=== PATIENT | male | born 1935 | race Caucasian/White ===

== ENCOUNTER → 2016-08-12 07:31 | Outpatient (CLI) | payer MEDICARE, BC ==
[2015-02-11 13:45] VITALS: BMI 27.3
[~2016-08-12 07:31] MED LIST: ATROVENT 0.02%2.5 ML UPD; BAYER CHEWABLE81 MG PO; BETAPACE 80 MG80 MG PO; BYSTOLIC2.5 MG PO; CHLORTHALIDONE25 MG PO; COLCRYS0.6 MG PO; COZAAR50 MG PO; FISH OIL 500 MG1 CAP PO; FLOMAX0.4 MG PO; FLUTICASONE PRO16 GM NASAL; HYDROCODONE-APA1 TAB PO; K-DUR20 MEQ PO; LASIX40 MG PO; MUCINEX DM ER1 EAC1 PO; NITROSTAT0.4 MG SL; NORVASC5 MG PO; NYSTATIN ORAL SU5 ML PO; OS-CAL 500+D TA1 TAB PO; PERCOCET 10/3251 TA1 PO; PLAVIX75 MG PO; PREDNISONE20 MG PO; RESTORIL15 MG PO; ROCEPHIN 2 GM/D52 G1 IV; TESSALON PERLE100 MG PO; ULTRAM50 MG PO; ZOFRAN4 MG PO
== END | disposition home or self-care (01) ==
LOC: D.RT 07:31
DX: J45.909 Unspecified asthma, uncomplicated (principal)

== ENCOUNTER 2017-03-09 08:57 | Outpatient (CLI) | payer MEDICARE, BC ==
--- NOTE | ~2017-03-09 | HEMODYNAMI ---
PATIENT:FARAZ POSADA MEDICAL RECORD: [id number] : 37 LOCATION:D.CAT ADMISSION DATE: 03/09/17 Generatedon:03/09/201711:24 Patient name: FARAZ POSADA Patient #: [id number] SSN: : 1935 Date of study: 03/09/2017 Page: Of Hemodynamic Procedure Report Patient Data Patient Demographics Procedure consent was obtained First Name: FARAZ Gender: Male Last Name: SWETHA : 1935 [facility] Initial: ISAAC Age: 81 year(s) Patient #: [id number] Race: Additional ID: [id number] Contact details [address]: [address] [place] [address] State: [place] City: [place] Zip code: [address] Past Medical History Allergies Allergen Reaction Date Comments Reported Demerol 09/30/2014 Other allergy 09/30/2014 demerol, dexamethasone, sulfa, prednisone, ibuprofen, cortisone, IV contrast dye Other allergy 03/09/2017 Demerol, Ibuprofen, Iodine, Sulfa, Prednisone, Statins Admission Admission Data Admission Date: 03/09/2017 Admission Time: 8:57 Lab Results Lab Result Date: 03/09/2017 Lab Result Time: 0:00 Biochemistry Name Units Result Min Max BUN mg/dl 20 --(----)*- 7 18 Creatinine mg/dl 1.4 --(----)*- 0.6 1.3 CBC Name Units Result Min Max Hemoglobin g/dl 15.5 --(-*--)-- 13.5 17.5 Procedure Procedure Types Cath Procedure Diagnostic Procedure [facility] w/Coronaries FFR/IVUS Intra-Coronary IVUS Initial PCI Procedure Coronary Stent Initial Miscellaneous Procedures Moderate Sedation up to 30 minutes Peripheral Cath Diagnostic Procedure Cath Peripheral Lmoey-Wpqywao-Lls-Off Procedure Description Procedure Date Procedure Date: 03/09/2017 Procedure Start Time: 10:50 Procedure End Time: 11:17 Procedure Staff Name Function Javier Hsu MD Performing Physician Latia Smith RT Scrub Prince Maloney RN Nurse Sonya Kirkland RT Monitor Procedure Data Cath Procedure Fluoroscopy Diagnostic fluoroscopy Total fluoroscopy Time: 8.1 time: 8.1 min min Diagnostic fluoroscopy Total fluoroscopy dose: dose: 1500 mGy 1500 mGy Contrast Material Contrast Material Type Amount (ml) Isovue 300 153 Entry Location Entry Primary Successful Side Size Upsize Upsize Entry Closure Succes sful Closure Location (Fr) 1 (Fr) 2 (Fr) Remarks Device Remarks Femoral Left 5 Fr 6 Fr 7 Fr Exoseal artery Short Short Estimated blood loss: 5 ml Diagnostic catheters Device Type Used For End Catheter Placement Cordis 5Fr Pigtail Multi-vessel Catheter (MP) Angiography Cordis 5Fr JL 4.0 Left Coronary Catheter (MP) Angiography Cordis 5Fr 3DRC Catheter Right Coronary (MP) Angiography Procedure Complications No complications Procedure Medications Medication Administration Route Dosage Oxygen NC 2 l/min Heparin Flush Bag added to field 2 bags (1000units/500ml NS) 0.9% NaCl I.V. 100 ml/hr Fentanyl I.V. 50 mcg Versed I.V. 1 mg Fentanyl I.V. 50 mcg Versed I.V. 1 mg Fentanyl I.V. 50 mcg Versed I.V. 1 mg Fentanyl I.V. 50 mcg Versed I.V. 1 mg Heparin Bolus I.V. 4000 units Integrilin (Bolus 8.5 ml 2mg/ml) Integrilin (Bolus wasted 1.5 ml 2mg/ml) Plavix P.O. 600 mg Hemodynamics Rest HGB: 15.5 (g/dl) Heart Rate: 78 (bpm) Pressure Samples Time Site Value (mmHg) Purpose Heart Use Rate(bpm) 10:52 LV 67/9,10 Snapshot 75 Snapshots Pre Cath Intra NCS Post Cath Vital Signs Time Heart Resp SPO2 NIBP (mmHg) Rhythm Pain Sedation Rate (ipm) (%) Status Level (bpm) 10:25:32 78 17 100 155/87(128) NSR 0 (11) 10(A) , No pain 10:29:52 76 18 88 151/82(123) NSR 0 (11) 10(A) , No pain 10:34:10 73 18 98 148/79(115) NSR 0 (11) 10(A) , No pain 10:38:27 73 17 97 139/78(110) NSR 0 (11) 10(A) , No pain 10:42:38 73 19 98 133/82(106) NSR 0 (11) 10(A) , No pain 10:46:51 73 17 98 132/75(107) NSR 0 (11) 10(A) , No pain 10:51:00 78 18 98 136/81(103) NSR 0 (11) 9(A) , No pain 10:55:16 74 18 94 131/72(104) NSR 0 (11) 9(A) , No pain 10:59:28 80 17 88 124/75(105) NSR 0 (11) 9(A) , No pain 11:03:36 80 18 92 121/75(96) NSR 0 (11) 9(A) , No pain 11:07:44 80 18 92 126/74(103) NSR 0 (11) 9(A) , No pain 11:11:52 80 18 92 135/82(115) NSR 0 (11) 9(A) , No pain 11:16:04 77 17 97 139/80(106) NSR 0 (11) 10(A) , No pain Medications Time Medication Route Dose Verified Delivered Reason Notes Effectiveness by by 10:24:49 Oxygen NC 2 Javier Prince Per physician l/min Shadi Maloney RN 10:24:56 Heparin Flush added 2 Javier Prince used for Bag to bags Shadi Maloney salesperson shoes (1000units/500ml field NS) 10:25:06 0.9% NaCl I.V. 100 Javier Liy Per physician ml/hr Shadi Maloney RN 10:44:11 Fentanyl I.V. 50 Javier Prince for sedation mcg Shadi Maloney RN 10:44:18 Versed I.V. 1 mg Javier Prince for sedation Shdai Maloney RN 10:46:58 Fentanyl I.V. 50 Javier Prince for sedation mcg Shadi Maloney RN 10:47:03 Versed I.V. 1 mg Javier Prince for sedation Shadi Maloney RN 10:49:55 Fentanyl I.V. 50 Javier Prince for sedation mcg Shadi Maloney RN 10:49:59 Versed I.V. 1 mg Javier Prince for sedation Shadi Maloney RN 10:53:48 Fentanyl I.V. 50 Javier Morrison for sedation mcg Shadi Maloney RN 10:53:51 Versed I.V. 1 mg Javier Morrison for sedation Shadi Maloney RN 10:59:43 Heparin Bolus I.V. 4000 Javier Morrison for units Shadi Maloney RN anticoagulation 11:09:07 Integrilin 8.5 Javier Morrison for (Bolus 2mg/ml) ml Shadi Maloney RN antiplatelet therapy 11:09:15 Integrilin wasted 1.5 Javier Morrison for (Bolus 2mg/ml) ml Shadi Maloney RN antiplatelet therapy 11:15:37 Plavix P.O. 600 Javier Morrison for mg Shadi Maloney RN antiplatelet therapy Procedure Log Time Note 10:05:30 Prince Maloney RN sent for patient. Start room use. 10:15:09 Diagnostic Cath Status : Elective 10:15:36 Time tracking: Regular hours 10:15:56 Plan of Care:Hemodynamics will remain stable., Cardiac rhythm will remain stable., Comfort level will be maintained., Respiratory function will remain adequate., Patient/ family verbilizes understanding of procedure., Procedure tolerated without complication., Recovers from procedure without complications.. 10:16:05 Patient received from Pre/Post Procedure Room to CCL 2 Alert and oriented. Tansferred to table in Supine position. 10:16:06 Warm blankets applied, and dorothy hugger turned on for patient comfort. 10:16:07 Correct patient and procedure confirmed by team. 10:16:08 Signed procedure consent form obtained from patient. 10:16:09 ECG and BP/O2 sat monitors applied to patient. 10:24:26 Vital chart was started 10:24:49 Oxygen 2 l/min NC was administered by Prince Maloney RN; Per physician; 10:24:56 Heparin Flush Bag (1000units/500ml NS) 2 bags added to field was administered by Prince Maloney RN; used for procedure; 10:25:06 0.9% NaCl 100 ml/hr I.V. was administered by Prince Maloney RN; Per physician; 10:27:14 Baseline sample Acquired. 10:27:21 Full Disclosure recording started 10:27:25 H&P Date Dictated: 03/09/2017 Within 30 days and on chart., H&P Addendum completed by physician on day of procedure. (MUST COMPLETE FOR ALL OUTPATIENTS). 10:27:27 Pre-procedure instructions explained to patient. 10:27:27 Pre-op teaching completed and patient verbalized understanding. 10:27:28 Family in waiting room. 10:27:29 Patient NPO since Midnight. 10:28:13 Patient allergic to Other allergyDemerol, Ibuprofen, Iodine, Sulfa, Prednisone, Statins 10:28:29 Is the patient allergic to Iodine/contrast media? Yes. 10:28:30 Was the patient premedicated? Yes 10:28:35 Is patient on blood thinner?Yes 10:28:39 ACC The patient was administered the following blood thiners within the last 24 hours: ACCAspirin 10:28:41 Patient diabetic? No. 10:28:43 Previous problem with sedation/anesthesia? No ? 10:28:45 Snore? Yes 10:28:46 Sleep apnea? Yes 10:28:47 Deviated septum? No 10:28:48 Opens mouth fully? Yes 10:28:50 Sticks out tongue? Yes 10:28:55 Airway obstruction? Yes copd 10:29:01 Dentures? Yes in tight 10:31:31 Pre procedure: right dorsailis pedis pulse 2+ Normal; easily identifiable; not easily obliterated 10:31:33 Pre procedure: left dorsailis pedis pulse 2+ Normal; easily identifiable; not easily obliterated 10:31:41 Patient pain scale 0/10 ?. 10:31:46 IV patent on arrival in left forearm with 0.9% NaCl at [facility]. 10:33:53 Lab Result : BUN 20 mg/dl 10:33:53 Lab Result : Creatinine 1.4 mg/dl 10:33:53 Lab Result : Hemoglobin 15.5 g/dl 10:33:59 Lab results completed and on chart. 10:34:06 Bilateral groins area was prepped with chlora-prep and draped in sterile fashion 10:34:07 Alarms reviewed by R. N. 10:34:08 Sharps counted by scrub and verified by R.N. 10:34:59 Zero performed for pressure channel P1 10:37:24 Physician paged 10:43:32 --------ALL STOP TIME OUT------ 10:43:32 Final Timeout: patient, procedure, and site verified with staff and physician. All members of the team are in agreement. 10:43:41 Right groin site verified by team. 10:43:46 Physical assessment completed. ASA score P 2 - A patient with mild systemic disease as per Javier Hsu MD. 10:43:50 Sedation plan: IV Moderate Sedation Versed, Fentanyl 10:44:11 Fentanyl 50 mcg I.V. was administered by Prince Malnoey RN; for sedation; 10:44:18 Versed 1 mg I.V. was administered by Prince Maloney RN; for sedation; 10:44:27 Use device set Femoral Dx 10:44:28 Acist Syringe opened to sterile field. 10:44:28 Bag Decanter opened to sterile field. 10:44:28 Medline Cath Pack opened to sterile field. 10:44:29 Terumo 5Fr [place] Sheath opened to sterile field. 10:44:29 St Shukri 260cm J .035 wire opened to sterile field. 10:44:30 Acist Hand Control opened to sterile field. 10:44:31 Acist Manifold opened to sterile field. 10:44:31 Diagnostic Infinity 5Fr Multipack catheter opened to sterile field. 10:44:31 Tegaderm 4 x 4 opened to sterile field. 10:46:58 Fentanyl 50 mcg I.V. was administered by Prince Maloney RN; for sedation; 10:47:03 Versed 1 mg I.V. was administered by Prince Maloney RN; for sedation; 10:48:12 Procedure started. 10:49:55 Fentanyl 50 mcg I.V. was administered by Prince Maloney RN; for sedation; 10:49:59 Versed 1 mg I.V. was administered by Prince Maloney RN; for sedation; 10:50:21 Local anesthetic to left femerol artery with Lidocaine 2% by Javier Hsu MD.INITIAL ACCESS ONLY 10:50:54 PERCUTANEOUS ENTRY 19GA needle opened to sterile field. 10:51:06 A 5 Fr sheath was inserted into the Left Femoral artery 10:51:15 A Cordis 5Fr Pigtail Catheter (MP) was advanced over the wire and used for Multi-vessel Angiography. 10:52:29 LV hemodynamics recorded. 10:52:30 LV gram done using BELTRAN 10:52:32 Injector settings: Ml/sec: 5, Volume: 15, 10:52:40 EF : 50 % 10:53:05 Abdominal angiogram w/ runoff was performed. 10:53:12 Injector settings: Ml/sec: 10, Volume: 20, 10:53:42 Catheter removed. 10:53:47 A Cordis 5Fr JL 4.0 Catheter (MP) was advanced over the wire and used for Left Coronary Angiography. 10:53:48 Fentanyl 50 mcg I.V. was administered by Prince Maloney RN; for sedation; 10:53:51 Versed 1 mg I.V. was administered by Prince Maloney RN; for sedation; 10:55:18 LCA angiography performed. 10:55:21 Injector settings: Ml/sec: 3, Volume: 6, 10:56:48 Catheter removed. 10:56:55 A Cordis 5Fr 3DRC Catheter (MP) was advanced over the wire and used for Right Coronary Angiography. 10:57:19 RCA angiography performed. 10:57:22 Injector settings: Ml/sec: 3, Volume: 6, 10:58:07 Catheter removed. 10:58:08 Proceeding to intervention. 10:58:25 [facility] [place] IVUS Catheter opened to sterile field. 10:58:26 Kennedy Whisper J 300cm 0.014 guide wire opened to sterile field. 10:58:27 Pediatric Bioscience BasixCompak Inflation Kit opened to sterile field. 10:58:27 Terumo 6Fr [place] Sheath opened to sterile field. 10:58:41 Medtronic Launcher 6Fr AR 2.0 guide catheter opened to sterile field. 10:58:58 Sheath upsized to a 6 Fr Short. 10:59:05 6 Fr ar 2 guide catheter was inserted over the wire 10:59:43 Heparin Bolus 4000 units I.V. was administered by Prince Maloney RN; for anticoagulation; 11:01:11 Storify PT Graphix J 300cm 0.014 guide wire opened to sterile field. 11:01:26 pt graphix wire advanced. 11:02:20 IVUS catheter advanced over wire. 11:03:56 IVUS pass to RCA lesion performed. 11:03:57 IVUS catheter removed over wire. 11:04:02 Wire removed. 11:04:05 Guide catheter removed. 11:04:31 Medtronic Launcher 7Fr AR 2.0 guide catheter opened to sterile field. 11:04:34 Terumo 7Fr [place] Sheath opened to sterile field. 11:04:45 Sheath upsized to a 7 Fr Short. 11:04:53 7 Fr ar 2 guide catheter was inserted over the wire 11:05:00 pt graphix wire advanced. 11:07:20 Inflation number: 1 A Euphora 3.5 x 30 Balloon was prepped and advanced across the Mid RCA, then inflated to 15 SHAGGY for 0:10 (min:sec). 11:08:10 Balloon removed over the wire. 11:09:07 Integrilin (Bolus 2mg/ml) 8.5 ml was administered by Prince Maloney RN; for antiplatelet therapy; 11:09:15 Integrilin (Bolus 2mg/ml) 1.5 ml wasted was administered by Prince Maloney RN; for antiplatelet therapy; 11:09:43 Inflation Number: 2 A Que OTW 3.5 x 34 stent was prepped and advanced across the Mid RCA. The stent was deployed at 19 SHAGGY for 0:10 (min:sec). 11:10:34 Stent catheter was removed intact over wire. 11:12:44 Inflation Number: 1 A Schoolcraft OTW 4.0 x 12 stent was prepped and advanced across the Prox RCA. The stent was deployed at 13 SHAGGY for 0:10 (min:sec). 11:14:01 Stent catheter was removed intact over wire. 11:14:01 Wire removed. 11:14:02 Guide catheter removed. 11:14:12 Cordis 7Fr Exoseal opened to sterile field. 11:14:20 Sheath removed intact; hemostasis achieved with Exoseal to the Left Femoral artery. 11:14:21 Procedure ended.(Physican Out) 11:15:07 Fluoroscopy time 08.10 minutes. 11:15:12 Fluoroscopy dose: 1500 mGy 11:15:12 Flurop Dose total: 1500 11:15:37 Plavix 600 mg P.O. was administered by Prince Maloney RN; for antiplatelet therapy; 11:15:53 Contrast amount:Isovue 300 153ml. 11:15:55 Sharps counted by scrub and verified by R.N. 11:15:57 Insertion/operative site no bleeding no hematoma. 11:16:00 Post-op/insertion site Left Femoral artery dressed using a 4 x 4 and Tegaderm. 11:16:04 Post left femerol artery:stable 11:16:07 Post Procedure Pulses reassessed and unchanged 11:16:10 Post procedure rhythm: unchanged. 11:16:12 Estimated blood loss: 5 ml 11:16:13 Post procedure instruction explained to patient.Patient verbalizes understanding. 11:16:14 Patient needs reinforcement of post procedure teaching. 11:16:40 Procedure type changed to Cath procedure, Diagnostic procedure, LHC, LHC w/Coronaries, FFR/IVUS, Intra-Coronary IVUS Initial, PCI procedure, Coronary Stent Initial, Miscellaneous Procedures, Moderate Sedation up to 30 minutes, Peripheral Cath Diagnostic Procedure, Cath Peripheral, Bttld-Qhvxkwo-Vsk-Off 11:16:49 Procedure and supply charges have been captured, reviewed, submitted and are correct. 11:16:52 Procedure Complication : No complications 11:16:54 Vital chart was stopped 11:16:55 See physician's report for complete and final results. 11:16:58 Report given to Pre/Post Procedure Room. 11:17:00 Patient transfered to Pre/Post Procedure Room with Stretcher. 11:17:02 Procedure ended. 11:17:02 Full Disclosure recording stopped 11:17:08 ACC-PCI Only Patient was given prescriptions, or instructed by Javier Hsu MD to start/continue the following medications upon discharge: Plavix 11:17:09 End room use (Document Last) 11:23:11 Femstop placed over the left femerol artery at 160 mmHg. Hemostasis achieved. Intervention Summary Intervention Notes Time ActionType Lesion and Equipment Action# Pressure Duration Attributes Used 11:07:20 Inflate Mid RCA Euphora 1 15 00:10 balloon 3.5 x 30 Balloon 11:09:43 Place stent Mid RCA Que OTW 2 19 00:10 3.5 x 34 stent 11:12:44 Place stent Prox RCA Que OTW 1 13 00:10 4.0 x 12 stent Device Usage Item Name Manufacture Quantity Catalog Number Hospital Part Current Min imal Lot# / Charge Number Stock Stock Serial# Code Acist Acist 1 [id number] 956634 308449 20 [employer] Oriented Development Software Bag Decanter Microtek [address] [place], [place] [address] 13847 847474 5 Medical Inc. Medline Cath Cardinal 1 [id number] 929289 50782 247010 5 Pack Health Terumo 5Fr Terumo 1 [id number] 926038 630215 666393 [address] [place] [address] Shukri 1 [id number] 788478 152926 977742 30 260cm J .035 wire Acist Hand Acist 1 34078 672822 847276 219258 5 Control Medical Systems Inc Acist Acist 1 78192 871600 233035 142796 5 [facility] Medical Systems Inc Diagnostic Cardinal 1 [id number] 403240 30957 019048 30 Infinity 5Fr Health Multipack catheter Tegaderm 4 x 3M 1 [id number] 035434 423909 847560 5 4 PERCUTANEOUS [facility] 1 [id number] 750687 394813 5 [id number] ENTRY 19GA needle Cordis 5Fr Cardinal 1 803740 5 Pigtail Health Catheter (MP) Cordis 5Fr Cardinal 1 [id number] 5 JL 4.0 Health Catheter (MP) Cordis 5Fr Cardinal 1 172617 5 3DRC Health Catheter (MP) [facility] [place] [facility] [place] 1 [id number] 067359 154407 940332 8 [place] IVUS Catheter [place] 1 [id number] 089478 495152 168465 5 Whisper J Vascular 300cm 0.014 guide wire Merit Merit 1 [id number] 366764 805408 033577 15 [facility] Inflation [facility] Terumo 6Fr Terumo 1 [id number] 204658 844851 474416 40 [place] Sheath Medtronic Medtronic 1 [id number] 608980 78923 703185 1 Launcher 6Fr AR 2.0 guide catheter [place] [employer] [place] 1 [id number] 352125 126357 517944 5 PT Graphix J Scientific 300cm 0.014 guide wire Medtronic Medtronic 1 [id number] 352568 178185 989507 0 Launcher 7Fr AR 2.0 guide catheter Terumo 7Fr Terumo 1 [id number] 860465 835292 428922 5 [place] Sheath Euphora 3.5 Medtronic 1 [id number] 743195 368942 721562 5 [id number] x 30 Balloon Que OTW 3.5 Medtronic 1 [id number] 005115 8092872 040635 5 [id number] x 34 stent Schoolcraft OTW 4.0 Medtronic 1 [id number] 825180 0212513 712678 5 [id number] x 12 stent Cordis 7Fr Cardinal 1 [id number] 698548 034828 202506 5 [facility] Health Signature Audit [place] Stage Time Signature Unsigned Intra-Procedure 03/09/2017 Sonya Kirkland 11:24:15 AM RT(R) Signatures Monitor : Sonya Kirkland RT Signature : Date : Time : [place] [id number] [facility] [place] [address]
[2017-03-09] MEDS ORDERED: NORVASC5 MG PO (09:19)
[2017-03-09] MEDS ORDERED: METOPROLOL TART50 MG PO (09:20)
[2017-03-09] MEDS ORDERED: PROSCAR5 MG PO (09:21)
[2017-03-09] MEDS ORDERED: LASIX20 MG PO (09:21)
[2017-03-09 09:29] VITALS: BP 144/87; BMI 25.6
[2017-03-09 09:46] LABS: BASOPHILS 0.2 % (0-2); EOSINOPHILS 0 % (0-7); HEMATOCRIT 44.9 % (42.0-54.0); HEMOGLOBIN 15.5 g/dL (13.5-17.5); IMMATURE GRANULOCYTES 0.7 % (0-5); MCHC 34.5 g/dL (31.0-37.0); MEAN PLATELET VOLUME 10.4 fL (7.4-10.4); MONOCYTES 2.9 % (2-11); NEUTROPHILS 88.2 % (40-80); PLATELET COUNT 277 10x3/uL (130-400); RBC 5.16 10x6/uL (4.20-6.10); RDW 13.8 % (11.5-14.5); WBC 10.4 10x3/uL (4.8-10.8)
[2017-03-09 09:53] LABS: CALCIUM 9.7 mg/dL (8.5-10.1); CARBON DIOXIDE 24.9 mmol/L (21.0-32.0); CREATININE - SERUM 1.4 mg/dL (0.6-1.3); POTASSIUM - SERUM 3.9 mmol/L (3.5-5.1)
[2017-03-09] MEDS ORDERED: PLAVIX75 MG PO (11:50)
--- NOTE | 2017-03-09 11:50 | NUR ---
2L NC, NO RESP DISTRESS NOTED. LEFT GROIN 6F EXOSEAL CDI, NO BLEEDING NOTED. FEMSTOP IN PLACE. NO C/O PAIN OR NAUSEA AT THIS TIME. VSS. FAMILY AT BEDSIDE, CALL LIGHT WITHIN REACH.
--- NOTE | 2017-03-09 12:31 | NUR ---
FEMSTOP REMAINS IN PLACE WITH VSS NO DISTRESS NOTED. L/GROIN CDI WILL MONITOR
--- NOTE | 2017-03-09 12:45 | NUR ---
FEMSTOP PRESSURE DECREASED BY 40, NO BLEEDING NOTED.
--- NOTE | 2017-03-09 13:00 | NUR ---
FEMSTOP PRESSURE DECREASED BY 40, NO BLEEDING NOTED.
--- NOTE | 2017-03-09 13:25 | NUR ---
REMAINING FEMSTOP PRESSURE REMOVED ALONG WITH FEMSTOP. DRESSING PLACED TO SITE. NO BLEEDIG NOTED.
--- NOTE | 2017-03-09 14:38 | NUR ---
HOB ELEVATED 30 DEGREES. LEFT GROIN 6F EXOSEAL CDI, NO BLEEDING OR HEMATOMA NOTED.
--- NOTE | 2017-03-09 15:10 | NUR ---
TO RESTROOM TO VOID.
--- NOTE | 2017-03-09 15:15 | NUR ---
DISCHARGE INSTRUCTIONS GIVEN, VERBALIZED UNDERSTANDING. TAKEN OUT VIA WHEELCHAIR BY CATH LIBERAL ARTS DEAN. LEFT FACILITY WITH FAMILY MEMBER AND ALL PERSONAL BELONGINGS.
--- NOTE | 2017-03-25 16:56 | OP ---
PATIENT NAME: FARAZ POSADA MEDICAL RECORD: [id number] :37 LOCATION:D.CAT ADMISSION DATE: SURGEON: LEYDA BENJAMIN MD DATE OF OPERATION: 03/09/2017 PROCEDURES: 1. PTCA stent to RCA. 2. Intravascular ultrasound. 3. Left heart catheterization. 4. Selective coronary angiography. 5. Left ventriculogram. INDICATION: Angina and coronary artery disease. PROCEDURE IN DETAIL: After informed consent was obtained and after a detailed explanation of the risks, benefits as well as alternative therapies, the patient elected to proceed with angiogram and angioplasty. The left femoral area was prepped and draped in normal sterile fashion. Left femoral artery was cannulated via modified Seldinger technique with placement of a 7-Maltese sheath. All catheters exchanged through this sheath. FINDINGS: The left ventriculogram was performed in standard 30-degree BELTRAN view, reveals preserved ejection fraction at 50%. SELECTIVE CORONARY ANGIOGRAPHY: 1. Left main showed no significant angiographic disease. 2. Left anterior descending has mild irregularities, but no flow-limiting stenosis. Previously placed stents are widely patent with no significant restenosis. 3. Left circumflex has 80+ percent stenosis of the first obtuse marginal. 4. Right coronary artery has greater than 75% stenosis throughout the proximal and mid vessel confirmed by intravascular ultrasound. PDA is totally occluded. The PDA fills via left to right collaterals. The right coronary does fill a large PLV system. PTCA STENT OF THE RIGHT CORONARY: The stent used was a 3.5 x 34 and 4.0 x 12 both Que stents. Result was 0% residual stenosis. OVERALL IMPRESSION: Successful percutaneous transluminal coronary angioplasty stent of the right coronary artery going from a long area of 75+ percent stenosis to 0% residual stenosis. PLAN: PTCA stent of the left circumflex in the near future. TRANSINT:[id number] Voice Confirmation ID: [id number] DOCUMENT ID: [id number] LEYDA BENJAMIN MD at 1656 CC: [id number] DICTATION DATE: 03/09/17 1118 GATE SUPERVISOR: 03/09/17 1137 [facility] CLI 03/09/17 [place] [address]
--- NOTE | 2017-03-25 16:56 | OP ---
PATIENT NAME: FARAZ POSADA MEDICAL RECORD: [id number] :37 LOCATION:D.CAT ADMISSION DATE: SURGEON: LEYDA BENJAMIN MD DATE OF OPERATION: 03/09/2017 PROCEDURES: 1. Aortofemoral runoff. 2. Abdominal aortography. INDICATION: Claudication and peripheral vascular disease. PROCEDURE IN DETAIL: After informed consent was obtained and after a detailed explanation of the risks, benefits as well as alternative therapies, the patient elected to proceed with angiogram and aortofemoral runoff. The left femoral area had a preexisting sheath from cardiac intervention. FINDINGS: Abdominal aortography was performed. The catheter was pulled down for aortofemoral runoff. Abdominal aortography reveals no significant abdominal aortic disease. No dissection or aneurysm formation. No renal artery stenosis. RIGHT LEG: A. Iliac: The common internal and external iliacs have mild irregularities, but no flow-limiting stenosis. B. Femoral system: The common superficial and deep femoral have moderate irregularities, but no flow-limiting stenosis. C. Popliteal and infrapopliteal vessels are patent with 3-vessel runoff to the foot, although mildly diffusely diseased. LEFT LEG: A. Iliac: The common internal and external iliacs have mild irregularities, but no flow-limiting stenosis. B. Femoral system: The common superficial and deep femoral have moderate irregularities, but no flow-limiting stenosis. C. Popliteal and infrapopliteal vessels are patent with 3-vessel runoff to the foot, although mildly diffusely diseased. OVERALL IMPRESSION: Minimal peripheral vascular disease is present. No flow limiting stenosis, leg pain is not secondary to arterial vascular insufficiency. TRANSINT:[id number] Voice Confirmation ID: [id number] DOCUMENT ID: [id number] LEYDA BENJAMIN MD at 1656 CC: [id number] DICTATION DATE: 03/09/17 1119 SENIOR EDITOR: 03/09/17 1143 [facility] CLI 03/09/[address] [address]
== END 2017-03-09 15:15 | disposition home or self-care (01) ==
LOC: D.CATH 08:57
PROVIDERS: Internal Medicine Interventional Cardiology
DX: I25.119 Atherosclerotic heart disease of native coronary artery with unspecified angina pectoris (principal); M79.606 Pain in leg, unspecified; I70.219 Atherosclerosis of native arteries of extremities with intermittent claudication, unspecified extremity; Z01.812 Encounter for preprocedural laboratory examination

== ENCOUNTER 2017-03-11 07:59 | Outpatient (CLI) | payer MEDICARE, BC ==
--- NOTE | ~2017-03-11 | HEMODYNAMI ---
PATIENT:FARAZ POSADA MEDICAL RECORD: [id number] : 37 LOCATION:D.CAT ADMISSION DATE: 03/11/17 Generatedon:03/11/201711:20 Patient name: FARAZ POSADA Patient #: [id number] SSN: : 1935 Date of study: 03/11/2017 Page: Of Hemodynamic Procedure Report Patient Data Patient Demographics Procedure consent was obtained First Name: FARAZ Gender: Male Last Name: SWETHA : 1935 [facility] Initial: ISAAC Age: 81 year(s) Patient #: [id number] Race: Additional ID: [id number] Contact details Address: [address] [place] [address] State: [place] City: [place] Zip code: [address] Past Medical History Allergies Allergen Reaction Date Comments Reported Demerol 09/30/2014 Other allergy 09/30/2014 demerol, dexamethasone, sulfa, prednisone, ibuprofen, cortisone, IV contrast dye Other allergy 03/09/2017 Demerol, Ibuprofen, Iodine, Sulfa, Prednisone, Statins Admission Admission Data Admission Date: 03/11/2017 Admission Time: 7:59 Lab Results Lab Result Date: 03/09/2017 Lab Result Time: 0:00 Biochemistry Name Units Result Min Max BUN mg/dl 20 --(----)*- 7 18 Creatinine mg/dl 1.4 --(----)*- 0.6 1.3 CBC Name Units Result Min Max Hemoglobin g/dl 15.5 --(-*--)-- 13.5 17.5 Procedure Procedure Types Cath Procedure PCI Procedure Coronary Stent Initial Miscellaneous Procedures Moderate Sedation up to 30 minutes Procedure Description Procedure Date Procedure Date: 03/11/2017 Procedure Start Time: 10:55 Procedure End Time: 11:20 Procedure Staff Name Function Javier Hsu MD Performing Physician Ethan Donnelly RT Scrub Zuleyma Lin RN Nurse Tata Damon RT Monitor Procedure Data Cath Procedure Fluoroscopy Diagnostic fluoroscopy Total fluoroscopy Time: time: 11.5 min 11.5 min Diagnostic fluoroscopy Total fluoroscopy dose: dose: 1588 mGy 1588 mGy Contrast Material Contrast Material Type Amount (ml) Isovue 300 95 Entry Location Entry Primary Successful Side Size Upsize Upsize Entry Closure Succes sful Closure Location (Fr) 1 (Fr) 2 (Fr) Remarks Device Remarks Femoral Right 6 Fr Exoseal artery Short Estimated blood loss: 10 ml Procedure Complications No complications Procedure Medications Medication Administration Route Dosage Oxygen NC 2 l/min Lidocaine 2% added to field 20 Heparin Flush Bag added to field 2 bags (1000units/500ml NS) 0.9% NaCl I.V. 100 ml/hr Versed I.V. 1 mg Fentanyl I.V. 50 mcg Versed I.V. 1 mg Fentanyl I.V. 50 mcg Heparin Bolus I.V. 4000 units Versed I.V. 1 mg Fentanyl I.V. 50 mcg Versed I.V. 1 mg Fentanyl I.V. 50 mcg Hemodynamics Rest HGB: 15.5 (g/dl) Heart Rate: 77 (bpm) Snapshots Pre Cath Intra NCS Post Cath Vital Signs Time Heart Resp SPO2 NIBP (mmHg) Rhythm Pain Sedation Rate (ipm) (%) Status Level (bpm) 10:16:51 69 11 100 158/89(141) NSR 0 (11) 10(A) , No pain 10:21:13 67 15 100 157/84(130) NSR 0 (11) 10(A) , No pain 10:25:34 77 15 99 165/86(126) NSR 0 (11) 10(A) , No pain 10:29:52 70 14 100 158/82(127) NSR 0 (11) 10(A) , No pain 10:34:12 70 16 98 151/87(124) NSR 0 (11) 10(A) , No pain 10:38:28 71 16 98 154/90(126) NSR 0 (11) 10(A) , No pain 10:42:46 70 14 98 151/84(120) NSR 0 (11) 10(A) , No pain 10:47:04 70 15 98 153/84(115) NSR 0 (11) 10(A) , No pain 10:51:20 71 16 98 153/86(127) NSR 0 (11) 10(A) , No pain 10:55:40 73 16 97 154/81(127) NSR 0 (11) 10(A) , No pain 11:00:00 75 15 95 137/85(111) NSR 0 (11) 9(A) , No pain 11:04:16 74 16 94 136/74(109) NSR 0 (11) 9(A) , No pain 11:08:28 76 18 97 144/85(111) NSR 0 (11) 9(A) , No pain 11:12:46 74 17 93 141/80(117) NSR 0 (11) 10(A) , No pain 11:17:00 74 16 94 146/88(111) NSR 0 (11) 10(A) , No pain Medications Time Medication Route Dose Verified Delivered Reason Notes Effectiveness by by 10:52:55 Oxygen NC 2 Javier Buffie used for l/min Shadi Lin RN procedure 10:53:03 Lidocaine 2% added 20ml Javier Javier for local to vial Shadi Hsu MD anesthetic field 10:53:12 Heparin Flush added 2 Javier Javier used for Bag to bags Shadi Hsu MD procedure (1000units/500ml field NS) 10:53:20 0.9% NaCl I.V. 100 Javier Buffie Per physician ml/hr Shadi Lin RN 10:53:29 Versed I.V. 1 mg Javier Buffie for sedation Shadi Lin RN 10:53:34 Fentanyl I.V. 50 Javier Buffie for sedation mcg Shadi Lin RN 10:56:19 Versed I.V. 1 mg Javier Buffie for sedation Shadi Lin RN 10:56:23 Fentanyl I.V. 50 Javier Buffie for sedation mcg Shadi Lin RN 10:56:43 Heparin Bolus I.V. 4000 Javier Buffie for verifi ed units Shadi Lin RN anticoagulation with dr hsu 11:04:09 Versed I.V. 1 mg Javier Buffie for sedation Shadi Lin RN 11:04:13 Fentanyl I.V. 50 Javier Buffie for sedation mcg Shadi Lin RN 11:09:30 Versed I.V. 1 mg Javier Buffie for sedation Shadi Lin RN 11:09:34 Fentanyl I.V. 50 Javier Amor for sedation [facility] Shadi Lin sliver former Log Time Note 9:58:35 Informed consent obtained and on chart 9:58:42 PCI Cath Status : Elective 9:59:57 Ethan Donnelly RT(R) (CV) sent for patient. Start room use. 10:03:30 Time tracking: Regular hours 10:03:34 Plan of Care:Hemodynamics will remain stable., Cardiac rhythm will remain stable., Comfort level will be maintained., Respiratory function will remain adequate., Patient/ family verbilizes understanding of procedure., Procedure tolerated without complication., Recovers from procedure without complications.. 10:15:37 Patient received from Pre/Post Procedure Room to CCL 2 Alert and oriented. Tansferred to table in Supine position. 10:15:37 Warm blankets applied, and dorothy hugger turned on for patient comfort. 10:15:38 Correct patient and procedure confirmed by team. 10:15:39 ECG and BP/O2 sat monitors applied to patient. 10:15:40 Vital chart was started 10:15:42 Rhythm: sinus rhythm 10:16:16 Full Disclosure recording started 10:16:30 H&P Date Dictated: 03/11/2017 Within 30 days and on chart., H&P Addendum completed by physician on day of procedure. (MUST COMPLETE FOR ALL OUTPATIENTS). 10:16:32 Pre-procedure instructions explained to patient. 10:16:32 Pre-op teaching completed and patient verbalized understanding. 10:16:34 Family in patients room. 10:16:35 Patient NPO since Midnight. 10:16:40 Is the patient allergic to Iodine/contrast media? Yes. 10:16:45 Was the patient premedicated? Yes 10:16:46 Is patient on blood thinner?Yes 10:16:48 ACC The patient was administered the following blood thiners within the last 24 hours: ACCPlavix 10:16:50 Patient diabetic? No. 10:16:56 Previous problem with sedation/anesthesia? No ? 10:16:56 Snore? Yes 10:16:57 Sleep apnea? Yes 10:17:02 Deviated septum? No 10:17:03 Opens mouth fully? Yes 10:17:03 Sticks out tongue? Yes 10:17:06 Airway obstruction? Yes COPD 10:17:10 Dentures? Yes In 10:17:13 Pre procedure: right dorsailis pedis pulse 2+ Normal; easily identifiable; not easily obliterated 10:17:15 Patient pain scale 0/10 ?. 10:17:20 IV patent on arrival in left hand with 0.9% NaCl at O. 10:17:25 Lab results completed and on chart. 10:17:27 Right groin area was prepped with chlora-prep and draped in sterile fashion 10:17:27 Alarms reviewed by R. N. 10:17:28 Sharps counted by scrub and verified by R.N. 10:17:31 Use device set Femoral PCI 10:17:32 Acist Syringe opened to sterile field. 10:17:32 Acist Hand Control opened to sterile field. 10:17:32 Bag Decanter opened to sterile field. 10:17:33 Medline Cath Pack opened to sterile field. 10:17:33 Terumo 6Fr [place] Sheath opened to sterile field. 10:17:33 St Shukri 260cm J .035 wire opened to sterile field. 10:17:34 Merit BasixCompak Inflation Kit opened to sterile field. 10:17:34 Acist Manifold opened to sterile field. 10:17:35 Tegaderm 4 x 4 opened to sterile field. 10:17:40 Kennedy Whisper J 300cm 0.014 guide wire opened to sterile field. 10:26:31 Baseline sample Acquired. 10:31:49 Zero performed for pressure channel P1 10:31:53 Zero performed for pressure channel P1 10:31:57 Zero performed for pressure channel P1 10:51:17 Final Timeout: patient, procedure, and site verified with staff and physician. All members of the team are in agreement. 10:51:19 Right groin site verified by team. 10:51:23 Physical assessment completed. ASA score P 2 - A patient with mild systemic disease as per Javier Hsu MD. 10:51:26 Sedation plan: IV Moderate Sedation Versed, Fentanyl 10:52:55 Oxygen 2 l/min NC was administered by Zuleyma Lin RN; used for procedure; 10:53:03 Lidocaine 2% 20ml vial added to field was administered by Javier Hsu MD; for local anesthetic; 10:53:12 Heparin Flush Bag (1000units/500ml NS) 2 bags added to field was administered by Javier Hsu MD; used for procedure; 10:53:20 0.9% NaCl 100 ml/hr I.V. was administered by Zuleyma Lin RN; Per physician; 10:53:29 Versed 1 mg I.V. was administered by Zuleyma Lin RN; for sedation; 10:53:34 Fentanyl 50 mcg I.V. was administered by Zuleyma Lin RN; for sedation; 10:55:28 Procedure started. 10:55:37 Local anesthetic to right femoral artery with Lidocaine 2% by Javier Hsu MD.INITIAL ACCESS ONLY 10:56:00 A 6 Fr Short sheath was inserted into the Right Femoral artery 10:56:19 Versed 1 mg I.V. was administered by Zuleyma Lin RN; for sedation; 10:56:23 Fentanyl 50 mcg I.V. was administered by Zuleyma Lin RN; for sedation; 10:56:37 6 Fr XBLAD 4.0 guide catheter was inserted over the wire 10:56:43 Heparin Bolus 4000 units I.V. was administered by Zuleyma Lin RN; for anticoagulation; verified with dr hsu 10:58:06 Whisper wire advanced. 11:01:42 Inflation number: 1 A [place] Sci [place] 3.0 X 15 balloon was prepped and advanced across the 1st Ob Jackie, then inflated to 11 SHAGGY for 0:07 (min:sec). 11:02:32 Balloon removed over the wire. 11:04:09 Versed 1 mg I.V. was administered by Zuleyma Lin RN; for sedation; 11:04:13 Fentanyl 50 mcg I.V. was administered by Zuleyma Lin RN; for sedation; 11:04:46 The Medtronic Integrity 3.0 X 18 stent was advanced then removed because of failure to cross lesion 11:05:34 Wire removed. unable to get back-up support 11:05:43 Mill[place] Sci Choice PT Extra Support J 300cm .014 gu opened to sterile field. 11:06:27 Choice PT ES wire advanced. 11:07:33 Inflation number: 2 The [place]wood Sci [place] 3.0 X 15 balloon was reinflated across the 1st Ob Jackie, to 15 SHAGGY for 0:07 (min:sec). 11:08:18 Balloon removed over the wire. 11:09:30 Versed 1 mg I.V. was administered by Zuleyma Lin RN; for sedation; 11:09:34 Fentanyl 50 mcg I.V. was administered by Zuleyma Lin RN; for sedation; 11:11:22 Inflation Number: 3 A Medtronic Integrity 3.0 X 18 stent was prepped and advanced across the 1st Ob Jackie. The stent was deployed at 13 SHAGGY for 0:06 (min:sec). 11:11:57 Stent catheter was removed intact over wire. 11:14:32 Inflation Number: 4 A Medtronic Integrity 2.5 X 12 stent was prepped and advanced across the 1st Ob Jackie. The stent was deployed at 19 SHAGGY for 0:08 (min:sec). 11:14:55 Stent catheter was removed intact over wire. 11:15:17 Sheath removed intact; hemostasis achieved with Exoseal to the Right Femoral artery. 11:15:18 Procedure ended.(Physican Out) 11:15:27 Fluoroscopy time 11.50 minutes. 11:15:30 Flurop Dose total: 1588 11:15:30 Fluoroscopy dose: 1588 mGy 11:15:33 Contrast amount:Isovue 300 95ml. 11:15:34 Sharps counted by scrub and verified by R.N. 11:15:36 Insertion/operative site no bleeding no hematoma. 11:15:42 Post-op/insertion site Right Femoral artery dressed using a 4 x 4 and Tegaderm. 11:15:45 Post right femoral artery:stable, clean and dry 11:15:46 Post Procedure Pulses reassessed and unchanged 11:15:50 Post-procedure physical assessment completed. ASA score P 2 - A patient with mild systemic disease as per Javier Hsu MD. 11:15:52 Post procedure rhythm: unchanged. 11:15:55 Estimated blood loss: 10 ml 11:15:56 Post procedure instruction explained to patient.Patient verbalizes understanding. 11:15:56 Patient needs reinforcement of post procedure teaching. 11:16:10 Procedure type changed to Cath procedure, PCI procedure, Coronary Stent Initial, Miscellaneous Procedures, Moderate Sedation up to 30 minutes 11:16:48 Procedure Complication : No complications 11:16:51 See physician's report for complete and final results. 11:18:35 Cordis 6Fr Exoseal opened to sterile field. 11:18:56 Cordis 6FR XBLAD 4.0 guide catheter opened to sterile field. 11:19:16 PERCUTANEOUS ENTRY 19GA needle opened to sterile field. 11:19:47 Procedure and supply charges have been captured, reviewed, submitted and are correct. 11:19:53 Vital chart was stopped 11:19:56 Report given to Pre/Post Procedure Room. 11:19:59 Patient transfered to Pre/Post Procedure Room with Stretcher. 11:20:06 Procedure ended. 11:20:06 Full Disclosure recording stopped 11:20:09 End room use (Document Last) Intervention Summary Intervention Notes Time ActionType Lesion and Equipment Action# Pressure Duration Attributes Used 11:01:42 Inflate 1st Ob Jackie Mill[place] 1 11 00:08 balloon Sci [place] 3.0 X 15 balloon 11:04:46 Discard Medtronic Stent Integrity 3.0 X 18 stent 11:07:33 Reinflate 1st Ob Jackie [place] 2 15 00:07 balloon Sci [place] 3.0 X 15 balloon 11:11:22 Place stent 1st Ob Jackie Medtronic 3 13 00:06 Integrity 3.0 X 18 stent 11:14:32 Place stent 1st Ob Jackie Medtronic 4 19 00:08 Integrity 2.5 X 12 stent Device Usage Item Name Manufacture Quantity Catalog Number Hospital Part Current Min imal Lot# / Charge Number Stock Stock Serial# Code Acist Acist 1 06127 [id number] 989180 [id number] 20 Syringe Medical Systems Inc Acist Hand Acist 1 73767 059745 527567 209018 5 Control Medical Systems Inc Bag Decanter Microtek 1 2002S 739285 10453 687795 5 Achievers Inc. Medline Cath Cardinal 1 [id number] 104769 59814 188963 5 VenJuvo Terumo 6Fr Terumo 1 [id number] 380950 368596 973700 [address] Shukri 1 627267 151933 777389 100460 30 260cm J .035 wire Merit Merit 1 [id number] 810052 110492 183089 15 BasixThe Networking Effect Medical Inflation Kit Acist Acist 1 68875 295870 344944 626912 5 Manifold Medical Systems Inc Tegaderm 4 x 3M 1 1626W 359057 177762 777151 5 4 Kennedy Kennedy 1 [id number] 055018 544469 271959 5 Whisper J Vascular 300cm 0.014 guide wire Millwood Sci Millwood 1 [id number] 973237 490663 574732 1 [id number] [place] 3.0 Scientific X 15 balloon Medtronic Medtronic 1 [id number] 788490 288209 7 [id number] Integrity 3.0 X 18 stent Millwood Sci Mill[place] 1 [id number] 611515 5 Choice PT Scientific Extra Support J 300cm .014 gu Medtronic Medtronic 1 [id number] 659255 604817 3 [id number] Integrity 2.5 X 12 stent Cordis 6Fr Cardinal 1 EX600 180328 273333 814648 10 Exoseal Health Cordis 6FR Cardinal 1 [id number] 467728 820278 359845 3 XBLAD 4.0 Health guide catheter PERCUTANEOUS [employer] 1 [id number] 621231 427355 5 ENTRY 19GA needle Signature Audit [place] Stage Time Signature Unsigned Intra-Procedure 03/11/2017 Tata 11:20:19 AM Counts RT(R) Signatures Monitor : Tata Signature : Counts RT Date : Time : [place] [id number] SONIYA REYNOLDS [id number]
[~2017-03-11 07:59] MED LIST changes: +LASIX20 MG PO; +METOPROLOL TART50 MG PO; +PROSCAR5 MG PO
[2017-03-11] MEDS ORDERED: PREDNISONE20 MG PO (08:34)
[2017-03-11 08:38] VITALS: BP 158/79; BMI 25.6
[2017-03-11 08:54] LABS: BASOPHILS 0 % (0-2); EOSINOPHILS 0 % (0-7); HEMATOCRIT 40.8 % (42.0-54.0); IMMATURE GRANULOCYTES 0.4 % (0-5); LYMPHOCYTES 5.4 % (15-50); MCH 30.1 pg (26.0-34.0); MCHC 34.3 g/dL (31.0-37.0); MCV 87.7 fL (80.0-100.0); MEAN PLATELET VOLUME 10.1 fL (7.4-10.4); MONOCYTES 4.5 % (2-11); NEUTROPHILS 89.7 % (40-80); PLATELET COUNT 242 10x3/uL (130-400); RBC 4.65 10x6/uL (4.20-6.10); RDW 14.4 % (11.5-14.5); WBC 13.9 10x3/uL (4.8-10.8)
[2017-03-11 09:02] LABS: ANION GAP 13.9 mmol/L (8-16); CALCIUM 9.2 mg/dL (8.5-10.1); CREATININE - SERUM 1.2 mg/dL (0.6-1.3); POTASSIUM - SERUM 3.9 mmol/L (3.5-5.1)
--- NOTE | 2017-03-11 11:40 | NUR ---
2L NC, NO RESP DISTRESS NOTED. RIGHT GROIN 6FEXOSEAL CDI, NO BLEEDING OR HEMATOMA NOTED. NO C/O PAIN OR NAUSEA. VSS. FAMILY AT BEDSIDE, CALL LIGHT WITHIN REACH.
--- NOTE | 2017-03-11 11:55 | NUR ---
2L NC, NO RESP DISTRESS NOTED. RIGHT GROIN 6F EXOSEAL CDI, NO BLEEDING OR HEMATOMA NOTED. NO C/O PAIN OR NAUSEA. VSS. FAMILY AT BEDSIDE, CALL LIGHT WITHIN REACH.
--- NOTE | 2017-03-11 12:25 | NUR ---
RESTING QUIETLY WITH EYES CLOSED. RIGHT GROIN 6F EXOSEAL CDI, NO BLEEDING OR HEMATOMA NOTED. 2L NC, NO RESP DISTRESS. CALL LIGHT WITHIN REACH.
--- NOTE | 2017-03-11 12:55 | NUR ---
RIGHT GROIN 6F EXOSEAL CDI, NO BLEEDING OR HEMATOMA NOTED. 2L NC, NO RESP DISTRESS. DENIES ANY PAIN OR NAUSEA. VSS. WILL CONTINUE TO MONITOR.
--- NOTE | 2017-03-11 14:45 | NUR ---
HOB ELEVATED 30 DEGREES. RIGHT GROIN 6F EXOSEAL CDI, NO BLEEDING NOTED.
--- NOTE | 2017-03-11 15:16 | NUR ---
LEFT HAND PIV D/C'D WITH CATHETER INTACT, BAND AID TO SITE. UP TO BEDSIDE TO GET DRESSED.
--- NOTE | 2017-03-11 15:25 | NUR ---
DISCHARGE INSTRUCTIONS GIVEN, VERBALIZED UNDERSTANDING.
--- NOTE | 2017-03-11 15:30 | NUR ---
TAKEN OUT VIA WHEELCHAIR BY CATH DEPOSITION REPORTER. LEFT FACILITY WITH FAMILY MEMBER AND ALL PERSONAL BELONGINGS.
--- NOTE | 2017-03-25 16:56 | HP ---
PATIENT: FARAZ LUNA MEDICAL RECORD: [id number] ACCOUNT: [id number] LOCATION:L[place]IN : 37 ADMISSION DATE: 03/11/17 HISTORY AND PHYSICAL EXAMINATION ADMITTING DIAGNOSES: 1. Angina. 2. Coronary artery disease. 3. Recent percutaneous transluminal coronary angioplasty stent of the right coronary artery with concomitant disease of the left circumflex. 4. Hypertension. 5. Hyperlipidemia. HISTORY OF PRESENT ILLNESS: Mr. Luna presents with anginal symptomatology, found to have 2-vessel coronary artery disease, underwent successful PTCA stent of the RCA. He is now brought back for PTCA stent of the left circumflex. PHYSICAL EXAMINATION: GENERAL APPEARANCE: Well-nourished, well-developed, appears stated age. Level of distress, comfortable. PSYCHIATRIC: Mental status, alert, normal affect. Orientation, oriented to time, place and person. EYES: Lids and conjunctiva, noninjected. No discharge, no pallor. ENT: Lips, teeth, gums, normal dentition. Oropharynx, no cyanosis, no pallor. NECK: Carotid arteries, bilateral normal upstroke, no bruits, no thrills. JUGULAR VEINS: No jugular venous pressure or distention. CERVICAL LYMPH NODES: Nontender, nonenlarged. THYROID: Not enlarged. Nontender. No nodules. LUNGS: Respiratory effort, unlabored. CHEST: Normal curvature. No thoracic deformity. No chest wall tenderness. Percussion, resonant. Auscultation, clear. No wheezes, no rales, no rhonchi. CARDIOVASCULAR: Precordial exam, nondisplaced. No heaves or pericardial thrills. Rate and rhythm, regular. Heart sounds, normal S1, normal S2. No S3, no gallop, no rub. Systolic murmur, not heard. Diastolic murmur, not heard. EXTREMITIES: No cyanosis, no edema. Peripheral pulses, full and equal in all extremities, except as noted. No bruits appreciated. ABDOMEN: Soft, nondistended. Normal aorta. No bruit. Nontender. No masses. Liver, nontender, no hepatomegaly. Spleen, nontender, no splenomegaly. MUSCULOSKELETAL: No joint tenderness. No joint swelling. No erythema. NEUROLOGICAL: Normal gait, normal strength, normal tone. SKIN: Warm and dry. REVIEW OF SYSTEMS: The patient reports easy bruising but reports no swollen glands. The patient reports no fever, no night sweats, no significant weight gain, no significant weight loss. No significant exercise tolerance. The patient reports no dry eyes, no irritation, no vision change. Patient reports no difficulty hearing and no ear pain. Patient reports no frequent nose bleeds or nose and sinus problems. Patient reports on arm pain on exertion. No shortness of breath while lying down. No history of heart murmur. Patient reports no cough, no wheezing or coughing up blood. Patient reports no abdominal pain, no vomiting. Normal appetite. No diarrhea and not vomiting blood. No nausea and no constipation. Patient reports no incontinence. No difficulty urinating. No hematuria. No increased frequency. Patient reports no muscle aches. No weakness, no arthralgias, no back pain. No swelling of the extremities. Patient reports no abnormal mole, no jaundice, no rashes. Reports HISTORY AND PHYSICAL [id number] FARAZ LUNA no loss of consciousness. No weakness and no numbness. No seizures, dizziness, or headaches. The patient reports no depression, no sleep disturbance, feeling safe in a relationship and no alcohol abuse. Patient reports on fatigue. Reports no runny nose or sinus pressure. No itching, no hives, and no frequent sneezing. OVERALL IMPRESSION: Anginal symptomatology with significant disease of the left circumflex. We will proceed with percutaneous transluminal coronary angioplasty stent of the left circumflex. TRANSINT:[id number] Voice Confirmation ID: [id number] DOCUMENT ID: [id number] LEYDA BENJAMIN MD at 1656 CC: [id number] DICTATION DATE: 03/11/17930 SPECIAL CLIENT BUS DRIVER: 03/11/17 1009 [facility] CLI 03/11/17 [place] [id number] [place] [id number]
--- NOTE | 2017-03-25 16:56 | OP ---
PATIENT NAME: FARAZ POSADA MEDICAL RECORD: [id number] :37 LOCATION:D.CAT ADMISSION DATE: SURGEON: LEYDA BENJAMIN MD DATE OF OPERATION: 03/11/2017 PROCEDURES: 1. PTCA and stent, left circumflex. 2. Selective coronary angiography. INDICATION: Angina and coronary artery disease. PROCEDURE IN DETAIL: After informed consent was obtained and after detailed explanation of risks and benefits as well as alternative therapies, the patient elected to proceed with angiogram and angioplasty. The right femoral area was prepped and draped in normal sterile fashion. The right femoral artery was cannulated via modified Seldinger technique with placement of 6-Swedish sheath. All catheter was exchanged through this sheath. FINDINGS: The left circumflex has a 90% to 95% stenosis in the mid vessel. This was addressed with a 3.0 x 18 and a 2.5 x 12, both Integrity stents. Result was 0% residual stenosis. OVERALL IMPRESSION: Successful PTCA and stent of the left circumflex going from 95% initial stenosis to 0% residual. TRANSINT:[id number] Voice Confirmation ID: [id number] DOCUMENT ID: [id number] LEYDA BENJAMIN MD at 1656 CC: [id number] DICTATION DATE: 03/11/17 1121 CHILD HEALTH ASSOCIATE: 03/11/17 1152 [facility] CLI 03/11/17 [place] [id number] [place] [address]
== END 2017-03-11 15:30 | disposition home or self-care (01) ==
LOC: D.CATH 07:59
PROVIDERS: Internal Medicine Interventional Cardiology
DX: I25.119 Atherosclerotic heart disease of native coronary artery with unspecified angina pectoris (principal); Z95.5 Presence of coronary angioplasty implant and graft; I10 Essential (primary) hypertension; E78.5 Hyperlipidemia, unspecified; Z01.812 Encounter for preprocedural laboratory examination

== ENCOUNTER → 2017-08-10 13:49 | Outpatient (CLI) | payer MEDICARE, BC | END | disposition home or self-care (01) | LOC: D.RT 13:49 | DX: J45.909 Unspecified asthma, uncomplicated (principal) ==

== ENCOUNTER → 2018-09-26 09:30 | Outpatient (CLI) | payer MEDICARE, BC | END | disposition home or self-care (01) | LOC: D.RT 09:30 | DX: J45.909 Unspecified asthma, uncomplicated (principal) ==